=== PATIENT | female | born 1975 | race Caucasian/White ===

== ENCOUNTER 2020-09-02 22:49 | Emergency (ER) | payer MEDICARE, OTHER ==
[~2020-09-02 22:49] MED LIST: BUSPIRONE HCL30 MG PO; FISH OIL 500 M1 EAC3 PO; LOSARTAN POTASS25 MG PO; LYRICA200 MG PO; OMEPRAZOLE40 MG PO; TIZANIDINE HCL2 MG PO; TOPIRAMATE25 MG PO; TYLENOL 500 MG500 MG PO; VENLAFAXINE HC150 M1 PO
[2020-09-02 23:33] LABS: HEMOGLOBIN 10.7 gm/dl (12.3-15.3); RED BLOOD COUNT 4.34 M/UL (4.00-5.10); WHITE BLOOD COUNT 11.3 K/UL (4.5-11.0)
[2020-09-02 23:49] LABS: BUN/CREATININE RATIO 11 (0-10)
[2020-09-03] MEDS ORDERED: IBUPROFEN600 MG PO (01:41)
[2020-09-03] MEDS ORDERED: PERCOCET 5/325 T1 EA PO ×2 (01:41→01:48)
== END 2020-09-03 02:00 | disposition home or self-care (01) ==
LOC: ER1 22:49
PROVIDERS: Family Medicine
DX: M54.5 Low back pain (principal); M54.2 Cervicalgia; D64.9 Anemia, unspecified; V49.9XXA Car occupant (driver) (passenger) injured in unspecified traffic accident, initial encounter; Y92.410 Unspecified street and highway as the place of occurrence of the external cause
CPT/HCPCS: 70450; 71260; 72125; 80053; 82550; 82553; 84484; 85025; 86850; 86900; 86901; 93005; 96374; 96375; 99284; G0480; J1885; J2405; Q9967